=== PATIENT | male | born 1950 | race Caucasian/White ===

== ENCOUNTER 2017-09-16 18:09 | Observation (INO) | payer OTHER ==
[~2017-09-16] VITALS: Ht 180.3 cm; Wt 90.0 kg
[2017-09-16 18:17] VITALS: BP 130/60; PULSE 70; RESP 18; TEMP 98.4; O2SAT 97
[2017-09-16 18:22] VITALS: BP 146/79; PULSE 63; RESP 18; O2SAT 98
[2017-09-16] MEDS ORDERED: ATOR10TA15 PO (18:24)
[2017-09-16] MEDS ORDERED: TAMS5CAP PO (18:30)
[2017-09-16] MEDS ORDERED: SODIUM CHLOR 0.9% 1000 ML INJ 1,000 ML IV ONE (18:30)
[2017-09-16] MEDS ORDERED: MICR12.5 PO (18:30)
[2017-09-16 18:32] VITALS: RESP 18; O2SAT 98
--- NOTE | 2017-09-16 18:33 | PD ---
HPI Chief Complaint: Syncope/Near-Syncope Time Seen by Provider: 18:21 Travel History International Travel<30 days: No Contact w/Intl Traveler<30days: No Traveled to known affect area: No History of Present Illness HPI Patient is a 67-year-old male with history of hypertension, hyperlipidemia, presents to emergency room complaints of syncopal episode. Patient reports that he was out having some beers during bike week, reports that all of a sudden , he was on the ground. Bystanders reports that patient had a syncopal episode , reports they also witnessed seizure-like activity. It was unknown how long the patient how long patient was unresponsive. Patient did have an episode of urinary incontinence. Patient denies history of seizures in the past. Patient does admit to drinking alcohol today, reports that he had to twisted teas, reports that he was working on his second [employer] light prior to this drink. Patient reports that he thinks that he lowered himself to the ground as he was feeling lightheaded and dizzy. Reports "I don't remember much after that." Patient denies history of syncope in the past. Patient denies any chest pain or shortness of breath. Patient at this time denies any headache or dizziness, denies any vision changes. Patient denies any fevers or chills. Patient reports no complaints at this time. [facility] Past Medical History Narrative Medical Patient with history of hyperlipidemia, hypertension, "prostate issues" Cardiovascular Problems: Yes High Cholesterol: Yes Diminished Hearing: No Hypertension: Yes Past Surgical History Surgical History: No Previous Surgery Social History Alcohol Use: Yes Tobacco Use: Yes Substance Use: No Allergies-Medications (Allergen,Severity, Reaction): Coded Allergies: No Known Allergies (Unverified , 09/16/17) Reported Meds & Prescriptions Reported Meds & Active Scripts Active Reported Microzide (Hydrochlorothiazide) 12.5 Mg Cap 25 Mg PO DAILY Flomax (Tamsulosin HCl) 0.4 Mg Cap 0.4 Mg PO HS Atorvastatin (Atorvastatin Calcium) 10 Mg Tab 10 Mg PO HS Review of Systems General / Constitutional: No: Fever Eyes: No: Visual changes HENT: Positive: Lightheadedness, No: Headaches Cardiovascular: Positive: Syncope, No: Chest Pain or Discomfort, Palpitations, Irregular Rhythm, Tachycardia, Diaphoresis Respiratory: No: Shortness of Breath Gastrointestinal: No: Abdominal Pain Genitourinary: No: Dysuria Musculoskeletal: No: Pain Skin: No Rash Neurologic: Positive: Weakness, Dizziness Psychiatric: No: Depression Endocrine: No: Polydipsia Hematologic/Lymphatic: No: Easy Bruising Physical Exam Narrative GENERAL: mild distress SKIN: Focused skin assessment warm/dry. HEAD: Atraumatic. Normocephalic. EYES: Pupils equal and round. No scleral icterus. No injection or drainage. ENT: No nasal bleeding or discharge. Mucous membranes pink and moist. NECK: Trachea midline. No JVD. CARDIOVASCULAR: Regular rate and rhythm. No murmur appreciated. RESPIRATORY: No accessory muscle use. Clear to auscultation. Breath sounds equal bilaterally. GASTROINTESTINAL: Abdomen soft, non-tender, nondistended. Hepatic and splenic margins not palpable. MUSCULOSKELETAL: No obvious deformities. No clubbing. No cyanosis. No edema. NEUROLOGICAL: Awake and alert. No obvious cranial nerve deficits. Motor grossly within normal limits. Normal speech. CN 2-12 grossly intact with no neurological deficits PSYCHIATRIC: Appropriate mood and affect; insight and judgment normal. Data Data Last Documented VS Vital Signs Date Time Temp Pulse Resp B/P (MAP) Pulse Ox O2 Delivery O2 Flow Rate FiO2 09/16/17 18:32 18 98 09/16/17 18:22 63 Room Air 09/16/17 18:17 98.4 Orders Orders Electrocardiogram (09/16/17 18:21) Complete Blood Count With Diff (09/16/17 18:21) Comprehensive Metabolic Panel (09/16/17 18:21) Magnesium (Mg) (09/16/17 18:21) B-Type Natriuretic Peptide (09/16/17 18:21) Ckmb (Isoenzyme) Profile (09/16/17 18:21) Troponin I (09/16/17 18:21) Act Partial Throm Time (Ptt) (09/16/17 18:21) Prothrombin Time / Inr (Pt) (09/16/17 18:21) Urinalysis - C+S If Indicated (09/16/17 18:21) Chest, Single Ap (09/16/17 18:21) Ct Brain W/O Iv Contrast(Rout) (09/16/17 18:21) Blood Glucose (09/16/17 18:21) Ecg Monitoring (09/16/17 18:21) Iv Access Insert/Monitor (09/16/17 18:21) Oximetry (09/16/17 18:21) Sodium Chlor 0.9% 1000 Ml Inj (Ns 1000 M (09/16/17 18:30) Alcohol (Ethanol) (09/16/17 18:21) MDM Medical Decision Making Medical Screen Exam Complete: Yes Emergency Medical Condition: Yes Medical Record Reviewed: Yes Interpretation(s) EKG at 1832: NSR at 65bpm, qt/qtc: 397/409, nonspecific t wave changes Vital Signs Date Time Temp Pulse Resp B/P (MAP) Pulse Ox O2 Delivery O2 Flow Rate FiO2 09/16/17 18:22 63 18 146/79 (101) 98 Room Air 09/16/17 18:17 98.4 70 18 130/60 (83) 97 Differential Diagnosis Differential includes electrolyte abnormality, ACS, arrhythmia, ICH, seizure, orthostatic hypotension Narrative Course 67-year-old male presents to emergency room after he had a syncopal episode while at bike week this afternoon. Patient reports that he felt lightheaded and dizzy, reports that he had a syncopal episode witnessed by bystanders. Patient also had an episode of possible seizure-like activity with episode of incontinence. Patient was placed on a environmental monitoring technician upon arrival to ER. EKG ordered. CT of head ordered including cbc, cmp ce's. IV line was established - will administer IVF Patient was signed out to oncoming physician at change of shift Gege Kelly DO Sep 16, 2017 18:33
--- NOTE | 2017-09-16 18:36 | RADRPT ---
EXAM DATE/TIME: 09/16/2017 18:24 [facility] COMPARISON: No previous studies available for comparison. INDICATIONS : Dizziness and shortness of breath. MEDICAL HISTORY : Prostate. SURGICAL HISTORY : None. ENCOUNTER: Initial ACUITY: 1 day PAIN SCORE: 0/10 LOCATION: Bilateral chest FINDINGS: A single view of the chest demonstrates the lungs to be symmetrically aerated without evidence of mas s, infiltrate or effusion. The cardiomediastinal contours are unremarkable. Osseous structures are intact right sided marginal anterior spurring CONCLUSION: Normal examination for a patient of this age. Vick Contreras MD on September 16, 2017 at 18:34 Board Certified Radiologist. This report was verified electronically.
[2017-09-16 19:00] LABS: AUTOMATED NEUTROPHIL # 3.4 TH/MM3 (1.8-7.7); BASOPHIL % 0.5 % (0.0-2.0); EOSINOPHIL # 0.1 TH/MM3 (0-0.4); EOSINOPHIL % 1.6 % (0.0-4.0); HEMATOCRIT 36.7 % (39.0-51.0); HEMO FLAGS DIFF FINAL; LYMPH % 25.8 % (9.0-44.0); LYMPHOCYTE # 1.5 TH/MM3 (1.0-4.8); MEAN CELL VOLUME 97.4 FL (80.0-100.0); MEAN CORPUSCULAR HEMOGLOBIN 33.5 PG (27.0-34.0); MEAN CORPUSCULAR HGB CONC 34.4 % (32.0-36.0); MONO % 12.9 % (0.0-8.0); NEUT % 59.2 % (16.0-70.0); PLATELET COUNT 181 TH/MM3 (150-450); RED BLOOD COUNT 3.77 MIL/MM3 (4.50-5.90); RED CELL DISTRIBUTION WIDTH 12.4 % (11.6-17.2); WHITE BLOOD COUNT 5.8 TH/MM3 (4.0-11.0)
[2017-09-16 19:07] VITALS: BP 156/86; PULSE 70; RESP 16; O2SAT 99
[2017-09-16 19:14] LABS: APTT (PATIENT) 24.1 SEC (24.3-30.1); PROTHROMBIN TIME - PATIENT 10.8 SEC (9.8-11.6)
[2017-09-16 19:22] LABS: ALT (GPT) 50 U/L (12-78); ANION GAP 7 MEQ/L (5-15); AST (GOT) 34 U/L (15-37); BICARBONATE 25.8 MEQ/L (21.0-32.0); BLOOD UREA NITROGEN 16 MG/DL (7-18); CHLORIDE 107 MEQ/L (98-107); GLOMERULAR FILTRATION RATE 77 ML/MIN (>89); MAGNESIUM 1.9 MG/DL (1.5-2.5); POTASSIUM 3.5 MEQ/L (3.5-5.1); SODIUM (NA) 140 MEQ/L (136-145)
[2017-09-16 19:25] LABS: ALCOHOL 27 MG/DL (0-5)
[2017-09-16 19:26] LABS: ALKALINE PHOSPHATASE 79 U/L (45-117); CREATINE KINASE 145 U/L (39-308); TOTAL BILIRUBIN ADULT 1.2 MG/DL (0.2-1.0)
[2017-09-16 19:39] LABS: CKMB 1.1 NG/ML (0.5-3.6)
--- NOTE | 2017-09-16 19:56 | RADRPT ---
EXAM DATE/TIME: 09/16/2017 19:35 [facility] COMPARISON: No previous studies available for comparison. INDICATIONS : Syncopal episode, possible seizure. RADIATION DOSE: 39.82 CTDIvol (mGy) MEDICAL HISTORY : Hypertension. SURGICAL HISTORY : None. ENCOUNTER: Initial ACUITY: 1 day PAIN SCALE: 0/10 LOCATION: cranial TECHNIQUE: Multiple contiguous axial images were obtained of the head. Using automated exposure control and adj ustment of the mA and/or kV according to patient size, radiation dose was kept as low as reasonably a chievable to obtain optimal diagnostic quality images. DICOM format image data is available electro nically for review and comparison. FINDINGS: CEREBRUM: The ventricles are normal for age. No evidence of midline shift, mass lesion, hemorrhage with a 1 cm area of low density in deep white matter of low parietal region just above the basal ganglion consis tent with infarct most likely remote with no mass effect. No extra-axial fluid collections are seen. POSTERIOR FOSSA: The cerebellum and brainstem are intact. The 4th ventricle is midline. The cerebellopontine angle i s unremarkable. EXTRACRANIAL: The visualized portion of the orbits is intact. SKULL: The calvaria is intact. No evidence of skull fracture. CONCLUSION: 1 cm low density deep white matter low parietal region adjacent to the body of lateral ventricle with out mass effect and no evidence of hemorrhage. 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 This report was verified electronically.
--- NOTE | 2017-09-16 20:40 | PD ---
Physical Exam Narrative Patient signed out to me by Dr. Kelly. Please see her documentation for complete details. Briefly, patient is a 67-year-old male who comes in after 2 syncopal episodes. Per friend, on the second episode, he was out for about 3 minutes and actually had incontinence of urine and seemed to be having saliva coming out of his mouth. Witness states there was no shaking movements however. Patient states this has never happened before. He says he was feeling fine before the event, but he was feeling rather tired earlier today. He did just start to new blood pressure medications 2 weeks ago and a medication for BPH last night. Exam shows heart rate is regular in rate and rhythm. Lungs are clear to auscultation. Data Data Last Documented VS Vital Signs Date Time Temp Pulse Resp B/P (MAP) Pulse Ox O2 Delivery O2 Flow Rate FiO2 09/16/17 19:09 67 18 99 Room Air 09/16/17 19:07 156/86 (109) 09/16/17:17 98.4 Orders Orders Electrocardiogram (09/16/17 18:21) Complete Blood Count With Diff (09/16/17 18:21) Comprehensive Metabolic Panel (09/16/17 18:21) Magnesium (Mg) (09/16/17 18:) B-Type Natriuretic Peptide (09/16/17 18:21) Ckmb (Isoenzyme) Profile (09/16/17 18:) Troponin I (09/16/17 18:21) Act Partial Throm Time (Ptt) (09/16/17 18:) Prothrombin Time / Inr (Pt) (09/16/17 18:21) Urinalysis - C+S If Indicated (09/16/17 18:21) Chest, Single Ap (09/16/17 18:21) Ct Brain W/O Iv Contrast(Rout) (09/16/17 18:21) Blood Glucose (09/16/17 18:21) Ecg Monitoring (09/16/17 18:) Iv Access Insert/Monitor (09/16/17 18:21) Oximetry (09/16/17 18:21) Sodium Chlor 0.9% 1000 Ml Inj (Ns 1000 M (09/16/17 18:30) Alcohol (Ethanol) (09/16/17 18:21) CKMB (09/16/17 18:20) CKMB% (09/16/17 18:20) Labs Laboratory Tests Test 09/16/17 18:20 White Blood Count 5.8 TH/MM3 Red Blood Count 3.77 MIL/MM3 Hemoglobin 12.6 GM/DL Hematocrit 36.7 % Mean Corpuscular Volume 97.4 FL Mean Corpuscular Hemoglobin 33.5 PG Mean Corpuscular Hemoglobin Concent 34.4 % Red Cell Distribution Width 12.4 % Platelet Count 181 TH/MM3 Mean Platelet Volume 7.8 FL Neutrophils (%) (Auto) 59.2 % Lymphocytes (%) (Auto) 25.8 % Monocytes (%) (Auto) 12.9 % Eosinophils (%) (Auto) 1.6 % Basophils (%) (Auto) 0.5 % Neutrophils # (Auto) 3.4 TH/MM3 Lymphocytes # (Auto) 1.5 TH/MM3 Monocytes # (Auto) 0.7 TH/MM3 Eosinophils # (Auto) 0.1 TH/MM3 Basophils # (Auto) 0.0 TH/MM3 CBC Comment DIFF FINAL Differential Comment Prothrombin Time 10.8 SEC Prothromb Time International Ratio 1.0 RATIO Activated Partial Thromboplast Time 24.1 SEC Blood Urea Nitrogen 16 MG/DL Creatinine 0.98 MG/DL Random Glucose 101 MG/DL Total Protein 6.2 GM/DL Albumin 3.5 GM/DL Calcium Level 8.8 MG/DL Magnesium Level 1.9 MG/DL Alkaline Phosphatase 79 U/L Aspartate Amino Transf (AST/SGOT) 34 U/L Alanine Aminotransferase (ALT/SGPT) 50 U/L Total Bilirubin 1.2 MG/DL Sodium Level 140 MEQ/L Potassium Level 3.5 MEQ/L Chloride Level 107 MEQ/L Carbon Dioxide Level 25.8 MEQ/L Anion Gap 7 MEQ/L Estimat Glomerular Filtration Rate 77 ML/MIN Total Creatine Kinase 145 U/L Creatine Kinase MB 1.1 NG/ML Troponin I LESS THAN 0.02 NG/ML B-Type Natriuretic Peptide 12 PG/ML Ethyl Alcohol Level 27 MG/DL [facility] Supervised Visit with ESTELLA: No Narrative Course CT of the head shows no acute abnormalities. Labs show no acute abnormalities. Patient is resting comfortably. He'll be placed in observation for further management. Diagnosis Primary Impression: Syncope and collapse Admitting Information Admitting Physician Requests: Observation Condition: Stable Malathi Schaefer MD Sep 16, 2017 20:40
[2017-09-16] MEDS ORDERED: SODIUM CHLORIDE 0.9% FLUSH 10 ML FLUSH IV FLUSH PRN (21:15)
[2017-09-16] MEDS ORDERED: NALOXONE HCL 0.4 MG/ML AMP IV PUSH PRN (21:15)
[2017-09-16 21:22] LABS: BLOOD, URINE TRACE (NEG); COMMENT (UR) CULT NOT INDICATED; CULTURE IF INDICATED CULT NOT INDICATED; GLUCOSE,URINE NEG (NEG); KETONE, URINE NEG (NEG); MUCUS URINE FEW /lpf (OCC); NITRITE,URINE NEG (NEG); URINE COLOR YELLOW (YELLW/STRAW)
[2017-09-16] MEDS ORDERED: ENOXAPARIN SODIUM 40 MG/0.4 ML SYRINGE SQ SCH (22:00)
--- NOTE | 2017-09-16 22:02 | HHI.HP ---
HPI Service [facility] Primary Care Physician Unknown Admission Diagnosis Syncope Diagnoses: (1) Syncope and collapse Chief Complaint: Witnessed syncope Travel History International Travel<30 Days: No Contact w/Intl Traveler <30 Da: No Traveled to Known Affected Are: No History of Present Illness Written by Ema Vazquez, acting as scribe for Dr. Ni on 09/16/17 at 22:02. The patient was standing on [address] at about noon today; felt dizzy and lightheaded and had a syncopal episode with urinary incontinence. The patient was diaphoretic and reportedly pale. Prior to this episode, the patient reports drinking 3 beers; eating two eggs and a bowl of cereal. Prior to episode, he says he felt hot, had blurry vision, was near syncopal and was set down on ground by friends assisting him. When he attempted to stand back up, he got dizzy and had a syncopal episode with foaming at the mouth and, again, was assisted to the ground by his friends. He never fell down, never hit his head. States his BP was 70/40 when checked by EMS. The patient states that no one noted him shaking. This is the first time anything like this has ever happened to him. He was recently started medication for bph - Tamsulosin started last night - 1st dose. HCTZ was started two weeks ago for hypertension. He reports that he did feel tired this morning. Does not take any blood thinners. Denies any black or bloody stools. Over the past two weeks: Dysuria, hematuria, chest pain, shortness of breath, dizziness, or syncope. The patient states regarding OTC meds: Took a edel aspirin yesterday, advil a couple of days ago, and a benadryl yesterday. Works outdoors in the sun. Review of Systems Except as stated in HPI: all other systems reviewed are Neg Past Family Social History Past Medical History Hyperlipidemia Hypertension BPH ?mild valvular heart problem? Denies diabetes, CAD, CHF, irregular heart rhythms, COPD, asthma, liver problems , kidney problems, DVT, CVA, PE, seizures, cancers, or thyroid problems. . Past Surgical History Denies . Reported Medications Reported Meds & Active Scripts Active Reported Microzide (Hydrochlorothiazide) 12.5 Mg Cap 25 Mg PO DAILY Flomax (Tamsulosin HCl) 0.4 Mg Cap 0.4 Mg PO HS Atorvastatin (Atorvastatin Calcium) 10 Mg Tab 10 Mg PO HS . Allergies: Coded Allergies: No Known Allergies (Unverified , 09/16/17) Active Ordered Medications Current Medications Sodium Chloride 1,000 ml @ 999 mls/hr BOLUS ONCE IV Last administered on t 18:30; Start 09/16/17 at 18:30; Stop 09/16/17 at 19:30; Status DC Sodium Chloride (NS Flush) 2 ml UNSCH PRN IV FLUSH FLUSH AFTER USING IV ACCESS ; Start 09/16/17 at 21:15 Sodium Chloride (NS Flush) 2 ml BID IV FLUSH ; Start 09/17/17 at 09:00 Naloxone HCl (Narcan Inj) 0.4 mg UNSCH PRN IV PUSH SEE LABEL COMMENTS; Start 09/16/17 at 21:15 . Family History Mother lived until 94 y/o; Alzheimers Father with colon cancer age 76 y/o Brother with diabetes mellitus . Social History Alcohol: drinks once or twice a week 3 - 5 drinks Tobacco: e cigarette now, has a history of smoking cigarettes - quit for 8 years and started smoking cigars for three or four years; has been off cigars for 9 months appx. Illicit Drugs: denies . Physical Exam Vital Signs Vital Signs Date Time Temp Pulse Resp B/P (MAP) Pulse Ox O2 Delivery O2 Flow Rate FiO2 09/16/17 19:09 67 18 99 Room Air 09/16/17 19:07 70 16 156/86 (109) 99 Room Air 09/16/17 18:32 18 98 09/16/17 18:22 63 18 146/79 (101) 98 Room Air 09/16/17 18:17 98.4 70 18 130/60 (83) 97 Physical Exam GENERAL: This is a well-nourished, well-developed patient, in no apparent distress. SKIN: No rashes. Cool and dry. HEAD: Atraumatic. Normocephalic. EYES: No scleral icterus. No injection or drainage. ENT: Nose without bleeding, purulent drainage. Airway patent. NECK: Trachea midline. No JVD. CARDIOVASCULAR: Regular rate and rhythm without murmurs, gallops, or rubs. RESPIRATORY: Clear to auscultation. Breath sounds equal bilaterally. No wheezes , rales, or rhonchi. GASTROINTESTINAL: Abdomen soft, non-tender, nondistended. No guarding. MUSCULOSKELETAL: Extremities without clubbing, cyanosis, or edema. No calf tenderness. NEUROLOGICAL: Awake and alert. Motor and sensory grossly within normal limits. Normal speech. . Laboratory Laboratory Tests Test 09/16/17 18:20 09/16/17 21:10 White Blood Count 5.8 Red Blood Count 3.77 Hemoglobin 12.6 Hematocrit 36.7 Mean Corpuscular Volume 97.4 Mean Corpuscular Hemoglobin 33.5 Mean Corpuscular Hemoglobin Concent 34.4 Red Cell Distribution Width 12.4 Platelet Count 181 Mean Platelet Volume 7.8 Neutrophils (%) (Auto) 59.2 Lymphocytes (%) (Auto) 25.8 Monocytes (%) (Auto) 12.9 Eosinophils (%) (Auto) 1.6 Basophils (%) (Auto) 0.5 Neutrophils # (Auto) 3.4 Lymphocytes # (Auto) 1.5 Monocytes # (Auto) 0.7 Eosinophils # (Auto) 0.1 Basophils # (Auto) 0.0 CBC Comment DIFF FINAL Differential Comment Prothrombin Time 10.8 Prothromb Time International Ratio 1.0 Activated Partial Thromboplast Time 24.1 Blood Urea Nitrogen 16 Creatinine 0.98 Random Glucose 101 Total Protein 6.2 Albumin 3.5 Calcium Level 8.8 Magnesium Level 1.9 Alkaline Phosphatase 79 Aspartate Amino Transf (AST/SGOT) 34 Alanine Aminotransferase (ALT/SGPT) 50 Total Bilirubin 1.2 Sodium Level 140 Potassium Level 3.5 Chloride Level 107 Carbon Dioxide Level 25.8 Anion Gap 7 Estimat Glomerular Filtration Rate 77 Total Creatine Kinase 145 Creatine Kinase MB 1.1 Troponin I LESS THAN 0.02 B-Type Natriuretic Peptide 12 Ethyl Alcohol Level 27 Urine Color YELLOW Urine Turbidity CLEAR Urine pH 5.0 Urine Specific [place] 1.015 Urine Protein NEG Urine Glucose (UA) NEG Urine Ketones NEG Urine Occult Blood TRACE Urine Nitrite NEG Urine Bilirubin NEG Urine Urobilinogen LESS THAN 2.0 Urine Leukocyte Esterase NEG Urine RBC 2 Urine WBC 1 Urine Mucus FEW Microscopic Urinalysis Comment CULT NOT INDICATED Result Diagram: 09/16/17181909/16/170 Imaging Last Impressions Head CT 09/16/171820 Signed Impressions: Service Date/Time: August 19:35 - CONCLUSION: 1 cm low density deep white matter low parietal region adjacent to the body of lateral ventricle without mass effect and no evidence of hemorrhage. 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 Vick Contreras MD Caprini VTE Risk Assessment Caprini VTE Risk Assessment: Mod/High Risk (score >= 2) Caprini Risk Assessment Model Point Value = 1 Point Value = 2 Point Value = 3 Point Value = 5 Age 41-60 Minor surgery BMI > 25 kg/m2 Swollen legs Varicose veins or History of unexplained or recurrent spontaneous Oral contraceptives or hormone replacement Sepsis (< 1 month) Serious lung disease, including pneumonia (< 1 month) Abnormal pulmonary function Acute myocardial infarction Congestive heart failure (< 1 month) History of inflammatory bowel disease Medical patient at bed rest Age 61-74 Arthroscopic surgery Major open surgery (> 45 min) Laparoscopic surgery (> 45 min) Malignancy Confined to bed (> 72 hours) Immobilizing plaster cast Central venous access Age >= 75 History of VTE Family history of VTE Factor V Leiden Prothrombin [id number] Lupus anticoagulant Anticardiolipin antibodies Elevated serum homocysteine Heparin-induced thrombocytopenia Other congenital or acquired thrombophilia Stroke (< 1 month) Elective arthroplasty Hip, pelvis, or leg fracture Acute spinal cord injury (< 1 month) Prophylaxis Regimen Total Risk Factor Score Risk Level Prophylaxis Regimen 0-1 Low Early ambulation 2 Moderate Order ONE of the following: *Sequential Compression Device (SCD) *Heparin 5000 units SQ BID 3-4 Higher Order ONE of the following medications: *Heparin 5000 units SQ TID *Enoxaparin/Lovenox 40 mg SQ daily (WT < 150 kg, CrCl > 30 mL/min) *Enoxaparin/Lovenox 30 mg SQ daily (WT < 150 kg, CrCl > 10-29 mL/min) *Enoxaparin/Lovenox 30 mg SQ BID (WT < 150 kg, CrCl > 30 mL/min) AND/OR *Sequential Compression Device (SCD) 5 or more Highest Order ONE of the following medications: *Heparin 5000 units SQ TID (Preferred with Epidurals) *Enoxaparin/Lovenox 40 mg SQ daily (WT < 150 kg, CrCl > 30 mL/min) *Enoxaparin/Lovenox 30 mg SQ daily (WT < 150 kg, CrCl > 10-29 mL/min) *Enoxaparin/Lovenox 30 mg SQ BID (WT < 150 kg, CrCl > 30 mL/min) AND *Sequential Compression Device (SCD) Assessment and Plan Problem List: (1) Syncope and collapse ICD Code: R55 - Syncope and collapse Status: Acute Assessment and Plan Syncope and Collapse - check orthostatic blood pressures - check echocardiogram for cardiac structure and function - continuous cardiac telemetry to monitor heart rate and for arrhythmias - bilateral carotid ultrasounds to r/o carotid stenosis - check serial cardiac enzymes and EKGs to r/o ACS Suspected seizure activity - check EEG - consult neurology - verbally ordered - Patient was advised to not drive or ride motorcycle for at least 6 months - seizure precautions - Ativan 1 mg IV q15 mins PRN seizures DVT prophylaxis - Lovenox 40 mg subq q24h - verbally ordered . This note was transcribed by [email or web address] [Ema Vazquez]. I, Dr. Vielka Ni personally performed the history, physical exam, and medical decision making; and confirmed the accuracy of the information in the transcribed note. Authenticated by Dr. Vielka Ni on 09/16/17 at 22:02. Discussed Condition With Patient and ER physician . Ema Vazquez Sep 16, 2017 22:02 Vielka Ni MD Sep 17, 2017 01:36
[2017-09-16] MEDS ORDERED: LORazepam 2 MG/ML VIAL IV PUSH PRN (22:15)
--- NOTE | 2017-09-16 22:39 | RADRPT ---
EXAM DATE/TIME: 09/16/2017 22:09 [facility] COMPARISON: CT BRAIN W/O CONTRAST, September 16, 2017, 19:35. INDICATIONS : Syncope. MEDICAL HISTORY : Hypercholesterolemia. Hypertension. Cardiac disorders. Hyperlipidemia. SURGICAL HISTORY : None. ENCOUNTER: Initial ACUITY: 1 day PAIN SCORE: 0/10 LOCATION: Bilateral neck PEAK SYSTOLIC VELOCITIES (cm/sec): ICA/CCA RATIO: Right: 1.1 Left: 1.0 ICA: Right: 106 Left: 84 CCA: Right: 93 Left: 88 ECA: Right: 103 Left: 89 VERTEBRAL: Right: 75 antegrade Left: 40 antegrade Elevated flow velocities and ICA/CCA ratios have been found to correlate with increased degrees of vessel stenosis, calculated as percentage of diameter relative to a normal segment of distal ICA/CCA FINDINGS: RIGHT CAROTID: No significant stenosis is visualized. The waveforms are within normal limits. LEFT CAROTID: No significant stenosis is visualized. The waveforms are within normal limits. Mild amount of nonste notic plaquing in the bulb VERTEBRAL ARTERIES: Antegrade flow is seen in both vertebral arteries. MISCELLANEOUS: None. CONCLUSION: No evidence of anatomic or physiologic stenosis Vick Contreras MD on September 16, 2017 at 22:36 Board Certified Radiologist. This report was verified electronically.
[2017-09-16 23:23] VITALS: BP_SYST 154; BP_SYST 158; BP_DIAS 76; BP_DIAS 86; PULSE 57; RESP 17; TEMP 98.3; O2SAT 97
[2017-09-17 00:36] LABS: CREATINE KINASE 153 U/L (39-308)
[2017-09-17 01:06] VITALS: PULSE 67
[2017-09-17 04:54] VITALS: BP_SYST 124; BP_SYST 136; BP_SYST 140; BP_DIAS 74; BP_DIAS 78; BP_DIAS 84; PULSE 64; RESP 16; TEMP 98.2; O2SAT 97
[2017-09-17 08:05] VITALS: PULSE 72
[2017-09-17 08:07] LABS: AUTOMATED NEUTROPHIL # 4.1 TH/MM3 (1.8-7.7); BASOPHIL % 0.4 % (0.0-2.0); EOSINOPHIL # 0.1 TH/MM3 (0-0.4); EOSINOPHIL % 1.5 % (0.0-4.0); HEMATOCRIT 36.8 % (39.0-51.0); HEMO FLAGS DIFF FINAL; LYMPH % 22.8 % (9.0-44.0); LYMPHOCYTE # 1.5 TH/MM3 (1.0-4.8); MEAN CELL VOLUME 96.1 FL (80.0-100.0); MEAN CORPUSCULAR HGB CONC 35.4 % (32.0-36.0); MONO % 11.4 % (0.0-8.0); NEUT % 63.9 % (16.0-70.0); PLATELET COUNT 178 TH/MM3 (150-450); RED BLOOD COUNT 3.83 MIL/MM3 (4.50-5.90); RED CELL DISTRIBUTION WIDTH 12.6 % (11.6-17.2); WHITE BLOOD COUNT 6.4 TH/MM3 (4.0-11.0)
[2017-09-17 08:16] LABS: ANION GAP 7 MEQ/L (5-15); BICARBONATE 24.6 MEQ/L (21.0-32.0); BLOOD UREA NITROGEN 13 MG/DL (7-18); CHLORIDE 108 MEQ/L (98-107); GLOMERULAR FILTRATION RATE 103 ML/MIN (>89); POTASSIUM 3.5 MEQ/L (3.5-5.1); SODIUM (NA) 140 MEQ/L (136-145)
[2017-09-17 08:21] LABS: CREATINE KINASE 155 U/L (39-308)
[2017-09-17 08:51] VITALS: BP 156/83; PULSE 66; RESP 18; TEMP 98.2; O2SAT 98
[2017-09-17] MEDS ORDERED: SODIUM CHLORIDE 0.9% FLUSH 10 ML FLUSH IV FLUSH SCH (09:00)
--- NOTE | 2017-09-17 11:27 | HHI.PR ---
Subjective Remarks Follow-up for syncope. The patient is feeling much better today. He has no acute complaints. He is hoping to go home and back to work soon. The patient was recently started on HCTZ 2 weeks ago for his blood pressure. He also started on Flomax the night before the syncopal episode for the first time. Yesterday he was having some back pain in the morning so he took an oxycodone which he is prescribed. He really only takes oxycodone on maybe once every 1-2 weeks. He was out in the sun all day with a long sleeve black shirt. He had had 3 alcoholic beverages. He was feeling faint soon as friends lowered him to the ground. After he rested there he started to feel better and tried to stand up and then he passed out. He states his friends told him he loss consciousness for about 2 or 3 minutes. He did lose control of his bladder. He states his friends told him he was drooling, denies any shaking. Objective Vitals Vital Signs Date Time Temp Pulse Resp B/P (MAP) Pulse Ox O2 Delivery O2 Flow Rate FiO2 09/17/17 08:51 98.2 66 18 156/83 (107) 98 09/17/17 08:05 72 09/17/17 04:54 98.2 64 16 136/78 (97) 97 124/84 (97) 140/74 (96) 09/17/17 01:06 67 09/16/17 23:23 98.3 57 17 158/76 (103) 97 161/87 (111) 154/86 (108) 09/16/17 19:09 67 18 99 Room Air 09/16/17 19:07 70 16 156/86 (109) 99 Room Air 09/16/17 18:32 18 98 09/16/17 18:22 63 18 146/79 (101) 98 Room Air 09/16/17 18:17 98.4 70 18 130/60 (83) 97 I/O 09/16/17 09/16/17 09/16/17 09/17/17 09/17/17 09/17/17 07:00 15:00 23:00 07:00 15:00 23:00 Intake Total 1000 ml Output Total 700 ml Balance 1000 ml -700 ml Intake IV Total 1000 ml Output Urine Total 700 ml # Voids 2 Result Diagram: 09/17/17 0655 09/17/17 0645 Imaging Last Impressions Head CT 09/16/171820 Signed Impressions: Service Date/Time: August 19:35 - CONCLUSION: 1 cm low density deep white matter low parietal region adjacent to the body of lateral ventricle without mass effect and no evidence of hemorrhage. 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 Vick Contreras MD Carotid Artery Ultrasound 09/16/17 0000 Signed Impressions: Service Date/Time: August 22:09 - CONCLUSION: No evidence of anatomic or physiologic stenosis Vick Contreras MD Objective Remarks GENERAL: Well-developed well-nourished. In no acute distress. SKIN: Warm and dry. No lesions noted. HEENT: Normocephalic. Pupils equal and round. Mucous membranes pink and moist. CARDIOVASCULAR: Regular rate and rhythm. No murmur appreciated. RESPIRATORY: No accessory muscle use. Clear to auscultation. Breath sounds equal bilaterally. GASTROINTESTINAL: Abdomen soft, non-tender, nondistended. Bowel sounds x4. MUSCULOSKELETAL: No obvious deformities. No clubbing or cyanosis. No edema. NEUROLOGICAL: Awake and alert. No focal neurological deficits. Moves upper and lower extremities spontaneously. Normal speech. PSYCHIATRIC: Appropriate mood and affect; insight and judgment normal. A/P Problem List: (1) Syncope and collapse ICD Code: R55 - Syncope and collapse Status: Acute Assessment and Plan 67-year-old male with past medical history of HTN, HLD, BPH who presented after syncopal episode Syncope: Sounds more vasovagal/neurocardiogenic secondary to dehydration and medication effect. Rule out seizure with urinary incontinence. Reviewed: Non-orthostatic. Labs with signs of mild dehydration improved with IVF. Head CT with likely remote infarct. Carotid ultrasound with no significant stenosis. EKG with NSR, no ischemic changes. Troponin negative 3. - check echocardiogram for cardiac structure and function - Check EEG - Neurology consulted - continuous cardiac telemetry to monitor heart rate and for arrhythmias - seizure precautions - Ativan 1 mg IV q15 mins PRN seizures - PT consulted Hypertension: Likely medication effect with dehydration from HCTZ and orthostasis from tamsulosin. - Discontinue HCTZ and tamsulosin - Start amlodipine - Monitor BP and continue outpatient PCP follow-up to adjust regimen Dehydration: Creatinine 0.98 and GFR 77 upon admission, no previous labs for comparison. Given IVF and creatinine improved to 0.76 and GFR to 103. Likely secondary to HCTZ and alcohol. Could definitely have contributed to his syncopal episode as above. - Improved DVT prophylaxis - Lovenox 40 mg subq q24h - verbally ordered Discharge Planning Follow-up results of echocardiogram, EEG, neurology recommendations. If these are okay, then discharge planning. Addendum 1730: EEG and echocardiogram are unremarkable. PT recommends no restrictions. Neurology has cleared the patient for discharge. Discharge home today with prescription for amlodipine and recommendation to follow-up with PCP at [facility][note 3] next week. Jose Carlos Lemon Sep 17, 2017 11:27
[2017-09-17 11:32] VITALS: BP 157/75; PULSE 66; RESP 18; TEMP 98.4; O2SAT 96
--- NOTE | 2017-09-17 11:39 | MG ---
cc: JOVANNI BYERS MD, TWETHIDA MD Lab No: Date: 09/17/2017 : 1950 Sex: M MEDICAL HISTORY Hypercholesteremia, hypertension, alcohol, caffeine, tobacco use. Drinking beer , suddenly he was on the ground having seizure-like activity. Prior to the episode he felt dizzy and light-headed with urinary incontinence. MEDICATION Lovenox. DESCRIPTION The background rhythm is 8-9 Hz alpha located posteriorly, bilateral and symmetrical with posterior and anterior gradient. During the recording the patient transitioned to stage II sleep with appearance of K-complexes and slowing of the background. Hyperventilation was not done. Photic stimulation did not elicit a driving response. There were no electrographic seizures or epileptiform discharges noted during the recording. INTERPRETATION This is a normal awake, drowsy and sleep EEG. Absence of electrographic seizures or epileptiform discharges does not rule out the diagnosis of epilepsy. Clinical correlation is recommended. oJvanni Byers MD RGO/CARLEY /11:26 AM /11:30 AM MTDLandon
--- NOTE | 2017-09-17 12:23 | ECHRPT ---
Indication: SYNCOPE CONCLUSIONS Normal left ventricular size. Wall thickness is normal. The left ventricular systolic function is low normal with an estimated ejection fraction in the rang e of 50- 55%. BP: 136 / 78 HR: 64 Rhythm: MEASUREMENTS (Male / Female) Normal Values Technical Quality: 2D ECHO LV Diastolic Diameter PLAX 5.3 cm 4.2 - 5.9 / 3.9 - 5.3 cm LV Systolic Diameter PLAX 4.3 cm IVS Diastolic Thickness 1.0 cm 0.6 - 1.0 / 0.6 - 0.9 cm LVPW Diastolic Thickness 0.6 cm 0.6 - 1.0 / 0.6 - 0.9 cm LV Relative Wall Thickness 0.3 RV Internal Dim ED PLAX 2.3 cm LA Systolic Diameter LX 3.7 cm 3.0 - 4.0 / 2.7 - 3.8 cm DOPPLER Mitral E Point Velocity 59.7 cm/s Mitral A Point Velocity 77.5 cm/s Mitral E to A Ratio 0.8 TR Peak Velocity 206.0 cm/s TR Peak Gradient 17.0 mmHg FINDINGS LEFT VENTRICLE Normal left ventricular size. Wall thickness is normal. The left ventricular systolic function is low normal with an estimated ejection fraction in the rang e of 50- 55%. RIGHT VENTRICLE Normal right ventricular size and systolic function. LEFT ATRIUM The left atrial size is normal. RIGHT ATRIUM The right atrial size is normal. ATRIAL SEPTUM Normal atrial septal thickness without atrial level shunting by limited color doppler interrogation. AORTA The aortic root and proximal ascending aorta are normal in size on limited imaging. MITRAL VALVE Structurally normal mitral valve. No mitral valve stenosis or regurgitation. AORTIC VALVE Trileaflet aortic valve. No aortic valve stenosis or regurgitation. TRICUSPID VALVE Structurally normal tricuspid valve. No tricuspid valve stenosis or regurgitation. PULMONARY VALVE The pulmonary valve is not well visualized. VESSELS The inferior vena cava is normal in size. PERICARDIUM No pericardial effusion. Jonnathan Garcia MD (Electronically Signed) Final Date:17 September 2017 12:22
[2017-09-17 15:50] VITALS: BP_SYST 129; BP_SYST 139; BP_SYST 148; BP_DIAS 69; BP_DIAS 72; BP_DIAS 76; PULSE 66; RESP 15; TEMP 98.5; O2SAT 98
[2017-09-17] MEDS ORDERED: AMLO5 PO (17:22)
--- NOTE | 2017-09-17 21:21 | EKG ---
Date Performed: 09/17/2017 Time Performed: 06:11:37 PTAGE: 67 years EKG: Sinus rhythm NORMAL ECG PREVIOUS TRACING : 09/16/2017 18.32 Compared to prior tracing no significant change DOCTOR: Hilario Diez Interpretating Date/Time 09/17/2017 21:19:06
--- NOTE | 2017-09-17 21:24 | EKG ---
Date Performed: 09/17/2017 Time Performed: 00:26:17 PTAGE: 67 years EKG: Sinus rhythm NONSPECIFIC T-WAVE ABNORMALITY BORDERLINE ECG PREVIOUS TRACING : 09/16/2017 18.32 Compared to prior tracing no significant change DOCTOR: Hilario Diez Interpretating Date/Time 09/17/2017 21:23:42
--- NOTE | 2017-09-17 22:02 | EKG ---
Date Performed: 09/16/2017 Time Performed: 18:32:51 PTAGE: 67 years EKG: Sinus rhythm NONSPECIFIC T-WAVE ABNORMALITY BORDERLINE ECG NO PREVIOUS TRACING DOCTOR: Hilario Diez Interpretating Date/Time 09/17/2017 21:31:41
--- NOTE | 2017-09-17 22:11 | MB ---
cc: JOVANNI SANDERS MD DATE OF CONSULTATION 09/17/17 REASON FOR CONSULTATION Seizure versus syncope. HISTORY OF PRESENT ILLNESS Mr. Church is a 67-year-old male who presented to the [facility] emergency room reporting an episode where he was standing on that main street about noon and he felt dizzy and lightheaded with a syncopal episode and had urinary incontinence. The patient states that he felt lightheaded and mild blurring of vision. Denies double vision, slurred speech or disorientation. He felt rapid heart rate, diaphoretic. He had several bottles of beer, sun was out. He had started his first dose of Flomax for his prostate the night before. He only had two eggs at 4:30 in the morning with a bowel of cereal at 3 or 4:30 in the morning. He fell to the ground. He hurt his right knee. He states that he had a full bladder and he was incontinent. There were no witnessed convulsive episodes, foaming or tongue biting. He denies any history of convulsions, TIA, recent head trauma. Blood pressure when checked by the EMS was 70/40. Denies similar episode in the past. He is also on HCTZ which was recently started along with the Flomax that was started the night before. REVIEW OF SYSTEMS A 12-point review of systems is negative except for what is stated in the HPI. PAST MEDICAL HISTORY 1. Hyperlipidemia, 2. Hypertension, 3. Benign prostatic hypertrophy PAST SURGICAL HISTORY Noncontributory MEDICATIONS 1. Microzide. 2. Flomax. 3. Atorvastatin. ALLERGIES No known allergies. FAMILY HISTORY Mother Alzheimer's. Father colon cancer. Brother diabetic. SOCIAL HISTORY Alcohol - drinks 3-5 drinks once or twice a week. Tobacco - smokes cigarettes and cigars and he has been off cigarettes for nine months. Denies illicit drug abuse. PHYSICAL EXAMINATION GENERAL: Awake, alert, oriented not in acute distress HEENT: Atraumatic, normocephalic. Intact hearing. Intact vision. NECK: Trachea in the midline. No signs of meningeal irritation. CARDIOVASCULAR: Regular rate and rhythm. RESPIRATORY: Clear to auscultation. No wheezes. GASTROINTESTINAL: Soft abdomen, nontender. MUSCULOSKELETAL: Without clubbing, cyanosis or edema. There are bruises on the right knee due to the fall. NEUROLOGIC: Awake, alert, oriented to time, person and place. Intact speech content. No dysarthria or dysphasia. Cranial nerves II-XII are grossly intact. Motor system examination 5/5 bilateral symmetrical with no abnormal movement, normal tone. Sensation is intact bilateral and symmetrical throughout to temperature and light touch. Cerebellar exam intact finger-to- nose and [id number]. Reflexes 2+ bilaterally symmetrical. Plantars are bilaterally downgoing. Intact tandem gait. Negative Romberg. No ataxia. LABORATORY DATA WBC 6.4, hemoglobin 13, platelet count 178. Sodium 140, potassium 3.5, BUN is 13 , creatinine 0.76, ethyl alcohol 27. IMAGING STUDIES - CT head without contrast revealed 1 cm low-density deep white matter low parietal region adjacent to the body of the lateral ventricle without mass effect. No evidence of hemorrhage most likely represents a remote infarct. - Carotid ultrasound - No evidence of anatomical or physiologic stenosis. DIAGNOSTIC IMPRESSION 1. Syncopal episode. 2. Convulsive syncope 3. Likely etiology is multifactorial related to use of new medication, being on a diuretic and Flomax and drinking excess alcohol in hot weather. 4. EEG was unremarkable. ASSESSMENT/PLAN This convulsive syncopal episode is multifactorial in etiology . The neurological exam is unremarkable and nonfocal. EEG and CT scan were unremarkable. No acute intracranial abnormality. There is no need that patient be started on anti-seizure medication at this time. Thank you for the opportunity to participate in the care of your patient. MD PETR Gardner/ /9:16 PM /9:48 PM MARILYN
[2017-09-18] MEDS ORDERED: amLODIPine BESYLATE 5 MG TAB PO SCH (09:00)
== END 2017-09-17 17:58 | disposition home or self-care (01) ==
LOC: NEPC 18:09 → NEDA 21:06 → NEPHCDU 23:10
PROVIDERS: ADMIT Hospitalist; ATTEND Hospitalist
DX: R55 Syncope and collapse (principal); R56.9 Unspecified convulsions; E86.0 Dehydration; T50.2X5A Adverse effect of carbonic-anhydrase inhibitors, benzothiadiazides and other diuretics, initial encounter; I10 Essential (primary) hypertension; E78.5 Hyperlipidemia, unspecified; R32 Unspecified urinary incontinence; E78.00 Pure hypercholesterolemia, unspecified; N40.0 Benign prostatic hyperplasia without lower urinary tract symptoms; M54.9 Dorsalgia, unspecified; R06.02 Shortness of breath; W19.XXXA Unspecified fall, initial encounter; F17.210 Nicotine dependence, cigarettes, uncomplicated
CPT/HCPCS: 70450; 71010; 80048; 80053; 80307; 81001; 82550; 82552; 83735; 83880; 84484; 85025; 85610; 85730; 93005; 93306; 93880; 95819; 97161; 99285; G0378; G8987; G8988; J1650; J7030